=== PATIENT | female | born 1985 | race Caucasian/White ===

== ENCOUNTER 2020-12-25 18:27 | Emergency (ER) | payer OTHER ==
[~2020-12-25] VITALS: Ht 160 cm; Wt 83.0 kg
[2020-12-25 21:30] LABS: BASOPHILS % 0.6 % (0.0-2.0); EOSINOPHILS % 3.5 % (0.0-5.0); HEMATOCRIT. 38.3 % (36.0-48.0); HEMOGLOBIN. 12.9 g/dL (12.0-16.0); LYMPHOCYTES % 32.9 % (20.0-50.0); MEAN CORPUSCULAR HEMOGLOBIN 26.4 pg (28.0-32.0); MEAN CORPUSCULAR VOLUME 78.3 fL (81.0-99.0); MEAN PLATELET VOLUME 8.3 fl (7.4-10.4); MONOCYTES % 6.4 % (2.0-8.0); NEUTROPHILS % 56.6 % (40.0-76.0); PLATELET 306 x1000/uL (130-400); RED BLOOD CELL COUNT 4.89 mill/uL (4.2-5.4); RED CELL DISTRIBUTION WIDTH 15.8 % (11.6-14.6)
[2020-12-25] MEDS ORDERED: SODIUM CHLORIDE 0.9% 1,000 ML IV ONE (21:30)
[2020-12-25 21:35] LABS: CHLORIDE 112 mEq/L (98-107)
[2020-12-25 21:43] LABS: HCG SCREEN NEGATIVE
[2020-12-25] MEDS ORDERED: KETOROLAC 30MG/ML VIAL IV ONE (22:15)
[2020-12-25 22:46] VITALS: BP 116/74
[2020-12-25] MEDS ORDERED: LORAZEPAM 1MG TABLET PO ONE (23:15)
[2020-12-26] MEDS ORDERED: IBUP-2030 MT (00:24)
[2020-12-26] MEDS ORDERED: LORA-249 MT (00:24)
== END 2020-12-26 00:50 | disposition home or self-care (01) ==
LOC: ER 18:54
DX: R07.89 Other chest pain (principal); R42 Dizziness and giddiness; R00.2 Palpitations; F41.9 Anxiety disorder, unspecified
CPT/HCPCS: 36415; 71045; 80053; 84484; 84703; 85025; 93005; 96361; 96374; 99285; J1885; J7030; Z7610